=== PATIENT | male | born 1995 | race Caucasian/White ===

== ENCOUNTER 2017-02-07 06:00 | Day surgery (SDC) | payer OTHER ==
[2017-01-31 15:54] VITALS: BMI 31.7
[2017-02-07] VITALS (10 sets, daily range): BP systolic 124–138; BP diastolic 55–62; PULSE 63–98; RESP 12–25; Ht 185.4 cm; Wt 110.0 kg
[~2017-02-07] VITALS: Ht 185.4 cm; Wt 110.0 kg
[~2017-02-07 06:00] MED LIST: SOD CHLORIDE 0.9% 1,000 ML IV SCH
[2017-02-07] MEDS ORDERED: BUPIVACAINE 0.25% (MPF) 30 ML INJ ONE (07:44)
[2017-02-07] MEDS ORDERED: MIDAZOLAM 1 MG/ML 2 ML INJ ONE (08:02)
[2017-02-07] MEDS ORDERED: PROPOFOL 20 ML ONE (08:02)
[2017-02-07] MEDS ORDERED: FENTAnyl 50 MCG/ML VIAL ONE (08:02)
[2017-02-07] MEDS ORDERED: LIDOCAINE 1% (MDV) 20 ML INJ ONE (08:06)
[2017-02-07] MEDS ORDERED: CEFAZOLIN 1 GM INJ ONE (08:11)
[2017-02-07] MEDS ORDERED: ONDANSETRON 4 MG INJ ONE (08:11)
[2017-02-07] MEDS ORDERED: DEXAMETHASONE 4 MG/ML 1 ML INJ ONE (08:12)
[2017-02-07] MEDS ORDERED: FAMOTIDINE 20 MG INJ ONE (08:12)
--- NOTE | 2017-02-07 08:32 | OPR ---
Date/Time of Note Date/Time of Note DATE: 02/07/17 TIME: 08:31 Operative Report Procedure Date: February 07, 2017 Preoperative Diagnosis left groin mass Postoperative Diagnosis left groin mass Operation Performed excision of left groin mass localized adjacent tissue transfer therapeutic injection of marcaine subcutaneous Surgeon: April DUBOIS Anesthesia: general Specimens left groin mass April DUBOIS February 07, 2017 08:32
--- NOTE | 2017-02-07 09:01 | OPR ---
DATE OF OPERATION: 02/07/2017 INDICATION: This is a 21-year-old male with a left groin mass. He requests surgical excision. The risks, alternatives, benefits, and personnel were discussed with the patient. The patient expressed understanding and consented to the operation. PREOPERATIVE DIAGNOSIS: Left groin mass. POSTOPERATIVE DIAGNOSIS: Left groin mass. OPERATION PERFORMED: 1. Left groin mass excision with a 4-cm size incision and a 4 x 1-cm size mass. 2. Localized adjacent tissue transfer with the use of skin flaps, with a skin defect of 4 square cm . 3. Therapeutic [place] [address]. SPECIMEN: Left groin mass. COMPLICATIONS: None. ANESTHESIA: General. DESCRIPTION OF PROCEDURE: The patient was taken to the OR and prepped and draped in the usual steri le fashion. A surgical timeout was performed. IV antibiotics were given. A left groin incision wa s made with a 10 blade. Dissection cautery was carried down to the mass and circumferentially excis ed. There was good hemostasis. Due to the large tissue defect, localized adjacent tissue transfer with the use of skin flaps was performed. Multilayer closure with interrupted 3-0 Vicryl and skin s taples. Local anesthesia was injected at the end of the case for therapeutic pain control. Dry dres sings were applied. Dictated By: TERESA MENDOSA/JOSUE Conf#: [id number] DID#: [id number]
[2017-02-07] MEDS ORDERED: KETOROLAC 30 MG INJ IV ONE (09:30)
[2017-02-07] MEDS ORDERED: ACETAMINOPHEN/CODEINE #3 TAB PO ONE (09:30)
[2017-02-07] MEDS ORDERED: HYDROmorphONE (0.2 MG/ML) 10ML SYG IV PRN (09:30)
== END 2017-02-07 10:03 | disposition home or self-care (01) ==
LOC: SDS 06:00
PROVIDERS: ATTEND Surgery
DX: D17.1 Benign lipomatous neoplasm of skin and subcutaneous tissue of trunk (principal)
CPT/HCPCS: 14000; 88307; J0690; J1100; J2250; J2405; J3010; Z7512; Z7610

== ENCOUNTER 2017-05-15 10:20 | Day surgery (SDC) | payer OTHER ==
[2017-05-14 12:24] VITALS: BMI 33.0
[~2017-05-15] VITALS: Ht 185.4 cm; Wt 112.0 kg
[~2017-05-15 10:20] MED LIST changes: +PROPOFOL 200 MG INJ ONE; -SOD CHLORIDE 0.9% 1,000 ML IV SCH
[2017-05-15] MEDS ORDERED: SOD CHLORIDE 0.9% 1,000 ML IV SCH (10:30)
[2017-05-15] MEDS ORDERED: CEFAZOLIN 2 GM/50 ML (PMX) 50 ML IVPB ONE (10:30)
[2017-05-15] MEDS ORDERED: MULTI PO (11:39)
[2017-05-15 11:51] VITALS: Ht 185.4 cm; Wt 112.0 kg
[2017-05-15 11:56] VITALS: BP 115/56; PULSE 55; RESP 20
[2017-05-15] MEDS ORDERED: LIDOCAINE 2% (MDV) 20 ML INJ ONE (13:53)
[2017-05-15] MEDS ORDERED: BUPIVACAINE 0.5% (SDV) 30 ML INJ ONE (13:53)
[2017-05-15] MEDS ORDERED: MIDAZOLAM 1 MG/ML 2 ML INJ ONE (14:10)
[2017-05-15] MEDS ORDERED: FENTAnyl 50 MCG/ML VIAL ONE (14:10)
[2017-05-15] MEDS ORDERED: KETOROLAC 30 MG INJ ONE (14:11)
[2017-05-15] MEDS ORDERED: CEFAZOLIN 1 GM INJ ONE (14:13)
[2017-05-15 14:40] VITALS: BP 109/53; PULSE 52; RESP 22
--- NOTE | 2017-05-15 14:44 | OPR ---
Date/Time of Note Date/Time of Note DATE: 05/15/17 TIME: 14:39 Operative Report Procedure Date: May 15, 2017 Preoperative Diagnosis right upper leg mass x 3 Postoperative Diagnosis same Operation Performed 1. excision of right upper leg medial leg mass 3 cm incision 3 cm mass 2. excision of right upper leg laterosuperior leg mass 3 cm incision 3 cm mass 3. excision of right upper leg lateroinferior leg mass 3 cm incision 3 cm mass 4. localized adjacent tissue transfer with the use of skin flaps 18 sq cm defect 5. therapeutic injection of subcutaneous marcaine cpt code 21107 Anesthesia Type: MAC Estimated Blood Loss: 0 - 10 ml's Specimens right upper leg medial mass right upper leg laterosuperior mass right upper leg lateroinferior mass Grafts/Implants: none Complications: no Indications This is a 22-year-old male with 3 right upper leg masses. He requires surgical excision. Risks alternatives benefits and percent were discussed the patient. Patient's best understanding and consents to the operation. Procedure Description Patient is taken to the OR and prepped and draped in usual sterile fashion. Surgical timeout was performed IV antibiotics given. Attention is paid to the right upper leg masses. Local anesthesia was therapeutically injected over all 3 mass sites. Using a 15 blade incision is made over the right upper leg medial mass. The mass was circumferentially excised. Due to tissue defect localized adjacent tissue transfer with these of skin flaps was performed. Multilayer closure with interrupted 3-0 Vicryl and skin rodolfo. Attention was then paid to the right upper leg lateral superior mass. 15 blade is used to make an incision over the mass. Dissection cautery was carried onto the mass and circumferentially excised. Due to tissue defect localized adjacent tissue transfer with these of skin flaps were performed multilayer closure with interrupted 3-0 Vicryl and skin rodolfo. Attention is paid to the right upper leg lateral inferior mass. 15 blade is used to make an incision over the mass. Dissection cautery was carried out the mass and circumferentially excised. Due to tissue defect localized adjacent tissue transfer with these of skin flaps were performed multilayer closure with interrupted 3-0 Vicryl and skin rodolfo. Dry dressings were applied. April DUBOIS May 15, 2017 14:44
[2017-05-15 14:45] VITALS: BP 108/53; PULSE 52; RESP 16
[2017-05-15 15:00] VITALS: BP 111/59; PULSE 51; RESP 16
[2017-05-15] MEDS ORDERED: IBUPROFEN 800 MG TAB PO ONE (15:00)
== END 2017-05-15 15:25 | disposition home or self-care (01) ==
LOC: SDS 10:20
PROVIDERS: ATTEND Surgery
DX: D17.23 Benign lipomatous neoplasm of skin and subcutaneous tissue of right leg (principal); J45.909 Unspecified asthma, uncomplicated
CPT/HCPCS: 14021; 88307; J0690; J2250; J3010; Z7512; Z7610; J1885